=== PATIENT | male | born 1995 | race Caucasian/White ===

== ENCOUNTER 2019-08-28 09:08 | Emergency (ER) | payer BC, MEDICAID ==
[~2019-08-28] VITALS: Ht 185.4 cm; Wt 124.3 kg
[~2019-08-28 09:08] MED LIST: METH30CP PO
[2019-08-28 09:20] VITALS: BP_SYST 150
--- NOTE | 2019-08-28 09:23 | NUR ---
Patient to ER bed 03 to gown for evaluation. Side rails up.
--- NOTE | 2019-08-28 09:25 | NUR ---
Pt presents to ED c/o discharge w/urination.
--- NOTE | 2019-08-28 09:30 | NUR ---
Dr Fernando at bedside examining patient
[2019-08-28] MEDS ORDERED: AZITHROMYCIN 250 MG TABLET PO ONE (09:45)
[2019-08-28] MEDS ORDERED: cefTRIAXone 1 GM VIAL IM ONE (09:45)
--- NOTE | 2019-08-28 09:45 | NUR ---
Pt medicated.Pt tolerated well.
[2019-08-28 10:21] VITALS: BP_SYST 150
--- NOTE | 2019-08-28 10:21 | NUR ---
Patient given written and verbal discharge instructions and verbalizes understanding. ER MD discussed with patient the results and treatment provided. Patient in stable condition. ID arm band removed. Rx of pyridium given. Patient educated on pain management and to follow up with PMD. Pain Scale 0 Opportunity for questions provided and answered. Medication side effect fact sheet provided.
[2019-08-30 00:06] LABS: CHLAMYDIA TRACHOMATIS NAA Negative (Negative)
[2019-08-30 12:57] LABS: NEISSERIA GONORRHOEAE NAA Positive (Negative)
--- NOTE | 2019-08-30 20:15 | NUR ---
ATTEMPTED TO GIVEN + GONORRHEA RESULTS NO ANSWER.
--- NOTE | 2019-08-31 07:23 | NUR ---
Pt called no answer for results.
--- NOTE | 2019-08-31 09:57 | NUR ---
Contact made with pt. Instructed to inform all sexual partners and follow up with PMD.
== END 2019-08-28 10:21 | disposition home or self-care (01) ==
LOC: SED 09:08
DX: N34.2 Other urethritis (principal)
CPT/HCPCS: 87491; 87591; 96372; 99283; J0696; Q0144